=== PATIENT | female | born 1970 | race Caucasian/White ===

== ENCOUNTER 2021-08-22 21:01 | Emergency (ER) | payer OTHER | END 2021-08-22 22:03 | disposition left against medical advice (07) | LOC: ER 21:01 | DX: S61.451A Open bite of right hand, initial encounter (principal); S61.452A Open bite of left hand, initial encounter; Z53.21 Procedure and treatment not carried out due to patient leaving prior to being seen by health care provider; W54.0XXA Bitten by dog, initial encounter; Y93.89 Activity, other specified; Y92.89 Other specified places as the place of occurrence of the external cause; Y99.8 Other external cause status ==